=== PATIENT | female | born 1950 | race Caucasian/White ===

== ENCOUNTER 2017-11-22 02:30 | Inpatient (IN) | payer OTHER ==
[~2017-11-22] VITALS: Ht 160 cm; Wt 97.5 kg
[~2017-11-22 02:30] MED LIST: ZESTORETIC 20-1 EAC1 PO
--- NOTE | 2017-11-22 13:40 | Admission Core Measures ---
Acute Coronary Syndrome (CM) ACS Core Measures Acute Coronary Syndrome Diagnosis No Congestive Heart Failure (NEW) CHF Core Measures Congestive Heart Failure Diagnosis No Cerebrovascular Accident (NEW) CVA Core Measures CVA/TIA Diagnosis No Venous Thromboembolism VTE Core Jose L (View Protocol) VTE Risk Factors Surgery No Mechanical VTE Prophylaxis d/t N/A MechProphylax Ordered No VTE Pharm Prophylaxis d/t NA PharmProphylax ordered Problem List As ranked by this Provider includes Assessment & Plan 1. Unilateral primary osteoarthritis, right knee HOME MEDS Home Med List Lisinopril/Hydrochlorothiazide (Zestoretic 20-25 MG Tablet) 20 MG-25 MG TABLET 1 TAB PO DAILY BP (Reported)
--- NOTE | 2017-11-22 13:41 | Surg Short-stay <48hrs Dis Sum ---
Visit Information Visit Dates Admission Date: 11/22/17 Discharge Date: 11/25/17 Surgical Short Stay DC Summary Admission Diagnosis: Primary osteoarthritis, right knee Final Diagnosis: Primary OA, right knee s/p R TKR Procedure(s): Right total knee replacement Summary/Significant Findings: Patient was admitted to the hospital for an elective total joint replacement. Procedure was tolerated well and patient was transferred to a general surgical floor. Diet was advanced and tolerated. Physical therapy performed evaluation and treatment. At time of hospital discharge, vital signs were stable, neurovascular status was intact, and pain was controlled with the use of oral pain medications. Condition at Discharge: Stable Discharge Disposition: home health services Discharge instructions provided to patient/family: Yes Post discharge follow-up plan: Follow up with Dr. Villalobos in 6 weeks from date of surgery. Please call his office to schedule/confirm this appointment.
[2017-11-22] MEDS ORDERED: OMEPRAZOLE20 M2 PO (13:43)
[2017-11-22] MEDS ORDERED: COLACE100 M1 PO (13:43)
[2017-11-22] MEDS ORDERED: ASPIRIN325 M2 PO (13:43)
[2017-11-22] MEDS ORDERED: DILAUDID2 M1 PO (13:43)
[2017-11-22] MEDS ORDERED: MIRALAX17 G1 PO (13:43)
--- NOTE | 2017-11-22 13:45 | Patient Discharge Instructions ---
Discharge Instructions General Discharge Information You were seen/treated for: Primary osteoarthritis, right knee You had these procedures: Right total knee replacement Watch for these problems: Increasing pain despite the use of pain medication Increasing redness, warmth or swelling Drainage of any type from incision Inability to bear weight on operative leg Persistent nausea and vomiting Fever greater than 101.5 degrees Do not soak the wound: Yes No bath, but you may shower: Yes Other wound care: Please keep wound clean and dry. No ointments or lotions of any type on or near incision. Your dressing will be changed by your nurse on the second day after your surgery. Daily dry dressing changes are recommended each day thereafter. Do not soak your wound- no tub baths/swimming. You may shower 48hr after surgery. Special Instructions: Aspirin: You are taking this medication to help prevent blood clot formation. Please take with food to protect your stomach lining. Please take as directed. Constipation: Pain medication can cause constipation. It is recommended that you take Colace and Miralax each day. Discontinue this medication if you develop loose stool or diarrhea. If you wish to continue this medication, it is available over the counter. If you are unable to move your bowels or unable to pass gas and are developing bloating, nausea, or vomiting as a result, please contact your doctor. Diet Continue normal diet: Yes Activity Full Activity/No Limits: No Activity Limited to: Walking with Assistance Other activity limits: Use rolling walker as needed Acute Coronary Syndrome Inclusion Criteria At DC or during hospital stay patient has or had the following: ACS DIAGNOSIS No Discharge Core Measures Meds if any: Prescribed or Continued at Discharge Meds if any: NOT Prescribed or Continued at Discharge Congestive Heart Failure Inclusion Criteria At DC or during hospital stay patient has or had the following: CHF DIAGNOSIS No Discharge Core Measures Meds if any: Prescribed or Continued at Discharge Meds if any: NOT Prescribed or Continued at Discharge Cerebrovascular accident Inclusion Criteria At DC or during hospital stay patient has or had the following: CVA/TIA Diagnosis No Discharge Core Measures Meds if any: Prescribed or Continued at Discharge Meds if any: NOT Prescribed or Continued at Discharge Venous thromboembolism Inclusion Criteria VTE Diagnosis No VTE Type NONE VTE Confirmed by (Test) NONE Discharge Core Measures - Per Current guidelines, there needs to be overlap - treatment for the first 5 days of Warfarin therapy. - If discharged on Warfarin prior to 5 days of - overlap therapy, the patient will need to be - assessed for post discharge needs including - *Post discharge parental anticoagulation - *Warfarin and/or parental anticoagulation education - *Follow up date to check INR post discharge At least 5 days overlap therapy as Inpatient No Meds if any: Prescribed or Continued at Discharge Note: Overlap Therapy is Warfarin and Anticoagulant Meds if any: NOT Prescribed or Continued at Discharge
--- NOTE | 2017-11-22 15:09 | Operative Report ---
Operative/Inv Procedure Report Surgery Date: 11/22/17 Name of Procedure: Right total knee replacement Pre-Operative Diagnosis: Primary right knee DJD Post-Operative Diagnosis: Same Estimated Blood Loss: 50ml to 100ml Surgeon/Cctv Technician: Griselda WAHL,Robert Pal Anesthesia: block Operative/Procedure Note Note: Description of Procedure: The patient was taken to the operating room and positively identified. After induction of spinal anesthesia and administration of appropriate pre-operative antibiotics, the patient was positioned supine on the operating room table and all bony prominences were well padded. A well-padded pneumatic tourniquet was placed on the right upper thigh. After performing a surgical timeout, the right lower extremity was prepped and draped in the usual sterile fashion. After exsanguination with Esmarch the tourniquet was inflated to 250mm of mercury. A standard medial parapatellar approach was made to the knee. This was carried down through skin and subcutaneous tissue to the level of the fascia. Meticulous hemostasis was maintained with Bovie electrocautery. The extensor mechanism and patellar retinaculum were opened sharply and the patella was everted. The infrapatellar fat was resected in order to improve exposure. Osteophytes were trimmed from the patella and femoral condyles and the patella was re-everted and tucked laterally. A medial release was performed and the cruciate ligaments were resected. The tibia was then subluxed anteriorly. Utilizing the appropriate extra-medullary guide, the proximal tibia was trimmed perpendicular to the long axis of the tibial shaft. Attention was then turned to the femur. After opening the medullary canal, the distal femoral cut was made in 6 degrees of valgus utilizing the appropriate intra-medullary guide. The extension gap was checked and found to be appropriate. The femur was then sized and the remainder of the femoral cuts were made with a size #4 4-in-1 femoral cutting guide. The flexion gap was checked and found to be symmetric and appropriate. The knee was then trialed with a size #4 femoral component, a size #4 tibial component and a size 11 mm polyethylene insert. The patella was trimmed to accept an A 32 patella. This yielded excellent range of motion, stability and patellar tracking. All trial components were removed and the knee was copiously irrigated with sterile saline. All components were cemented into place with Renu Simplex cement. All the components were of the Renu Triathlon knee system of the above stated sizes. The knee was again irrigated after cementation. The extensor mechanism and patellar retinaculum were repaired using interrupted #1 vicryl suture. The skin was re-approximated with 2-0 vicryl and closed with yunior. A sterile dressing was applied, the tourniquet was deflated, the patient was awakened and taken to the recovery room in satisfactory condition.
--- NOTE | 2017-11-22 17:28 | PN- Orthopedic ---
Subjective Subjective: POST-OP NOTE No complaints. Numbness already wearing off. Tolerating clears. No nausea. Still in PACU - not yet out of bed. No dizziness. No shortness of breath. No chest pains. Hasn't voided yet. Objective Vital Signs and I&Os Intake & Output 11/22 1600 11/22 0800 11/22 0000 11/21 1600 11/21 0800 11/21 0000 Intake Total Output Total Balance Patient 203 lb Weight pacu flowsheet reviewed, vss, due to void later tonight Physical Exam: General - alert & oriented x 3. comfortable. no acute distress. lungs - clear bilaterally. no w/r/r. Cardiac - s1s2. reg. Abdomen - soft. nontender. Extremities - warm bilaterally. right knee dressing c/d/i. on q device in place. ice over knee. calves soft and nontender b/l. nvi. Current Medications: Current Medications Sig/Tam Start time Last Medication Dose Route Stop Time Status Admin Acetaminophen 0 .STK-MED ONE 11/22 1317 DC PO Cefazolin Sodium 2,000 MG ONCE 11/22 0000 NR IV 11/22 2359 Midazolam HCl 0 .STK-MED ONE 11/22 1316 DC .ROUTE Oxycodone HCl 0 .STK-MED ONE 11/22 1318 DC PO Ropivacaine 500 ML ONCE ONE 11/22 1345 AC ON-Q Ball 1 BAG INJ 11/24 0724 Assessment/Plan Assessment/Plan This 67 year old female with hx htn, is POD#0 s/p right total knee replacement for primary right knee DJD advance diet as tolerated pain control as ordered will order iv tylenol around the clock per patient's request PT eval in am f/u am labs due to void this evening cher-operative ancef x 2 doses asa bid - dvt ppx dressing change and on q removal POD#2 d/c planning in 2-3 days. her goal is for home will d/w Core Measures Venous Thromboembolism VTE Risk Factors Surgery No Mechanical VTE Prophylaxis d/t N/A MechProphylax Ordered No VTE Pharm Prophylaxis d/t NA PharmProphylax ordered
[2017-11-22 18:30] VITALS: BP 132/88
[2017-11-22 21:58] VITALS: BP 124/88
[2017-11-23 02:22] VITALS: BP 138/86
[2017-11-23 05:54] VITALS: BP 122/72
--- NOTE | 2017-11-23 07:24 | PN- Orthopedic ---
Subjective Subjective: Patient states she feels well. She reports pain is well controlled. She states she took dilaudid in preperation of ambulating with PT this morning. She reports baseline pins and needles sensation in her toes. She offers no other complaints. 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 Objective Vital Signs and I&Os Vital Signs Date Time Temp Pulse Resp B/P B/P Pulse O2 O2 Flow FiO2 Mean Ox Delivery Rate 11/23 0554 98.4 78 20 122/72 93 Room Air 11/23 0222 98.3 77 20 138/86 93 Room Air 11/22 2158 98.1 68 20 124/88 90 Room Air 11/22 1830 98.4 86 22 132/88 94 Room Air Intake & Output 11/23 0800 11/23 0000 11/22 1600 11/22 0800 11/22 0000 11/21 1600 Intake Total 1000 Output Total 400 1000 Balance 600 -1000 Intake, IV 800 Intake, Oral 200 Output, Urine 400 1000 Patient 215 lb 203 lb Weight Weight Reported by Patient Measurement Method Physical Exam: Gen - resting comfortably awake an alert in NAD Cardiac - S1S2 noted, RRR Lungs - CTAB Abd - soft, nontender nondistended Ext - RLE dressing with abran wrap c/d/i, moves all extremities, motor an sensory intact. Alps in place, no edema or calf tenderness B/L Current Medications: Current Medications Sig/Tam Start time Last Medication Dose Route Stop Time Status Admin Acetaminophen 1,000 MG Q6H 11/23 0330 AC 11/23 N/A 1 UNIT IV 11/23 1544 0314 Acetaminophen 1,000 MG Q6H 11/22 1830 DC 11/22 N/A 1 UNIT IV 11/23 1244 2130 Acetaminophen 0 .STK-MED ONE 11/22 1317 DC PO Aspirin 325 MG BID 11/22 2200 AC 11/22 PO 2131 Cefazolin Sodium 2 GM Q8H 11/23 0030 AC 11/23 N/A 1 UNIT IV 11/23 0859 0027 Cefazolin Sodium 2 GM IQ8 11/22 1600 DC N/A 1 UNIT IV 11/23 0029 Cefazolin Sodium 2,000 MG ONCE 11/22 0000 DC IV 11/22 2359 Dextrose/Sodium 1,000 ML .[id number] 11/22 1830 AC 11/23 Chloride IV 0032 Docusate Sodium 100 MG BID 11/22 2200 AC 11/22 PO 2131 Fentanyl Citrate 100 MCG .STK-MED ONE 11/22 1318 DC IM 11/22 1319 Hydrochlorothiazide 25 MG DAILY 11/23 1000 AC PO Hydromorphone HCl 2 MG Q4P PRN 11/22 1830 AC 11/23 PO 0613 Hydromorphone HCl 4 MG Q4P PRN 11/22 1830 AC PO Hydromorphone HCl 2 MG .STK-MED ONE 11/22 1535 DC IM 11/22 1536 Lisinopril 20 MG DAILY 11/23 1000 AC PO Meperidine HCl 50 MG .STK-MED ONE 11/22 1535 DC IM 11/22 1536 Midazolam HCl 2 MG .STK-MED ONE 11/22 1318 DC IM 11/22 1319 Midazolam HCl 0 .STK-MED ONE 11/22 1316 DC .ROUTE Morphine Sulfate 2 MG Q2P PRN 11/22 1830 AC IV Morphine Sulfate 10 MG .STK-MED ONE 11/22 1318 DC IV 11/22 1319 Omeprazole 20 MG DAILY AC 11/23 0700 AC 11/23 PO 0614 Ondansetron HCl 4 MG Q6P PRN 11/22 1830 AC IV Oxycodone HCl 0 .STK-MED ONE 11/22 1318 DC PO Polyethylene Glycol 17 GM DAILY 11/23 1000 AC PO Promethazine HCl 12.5 MG Q6P PRN 11/22 1830 AC IV 11/29 1329 Ropivacaine 500 ML ONCE ONE 11/22 1345 DC ON-Q Ball 1 BAG INJ 11/24 0724 Tranexamic Acid 2,000 MG .STK-MED ONE 11/22 1318 DC IV 11/22 1319 Results Last 48 Hours of Labs: Laboratory Tests 11/23 0655 Chemistry Sodium Pending Potassium Pending Chloride Pending Carbon Dioxide Pending Anion Gap Pending BUN Pending Creatinine Pending BUN/Creatinine Ratio Pending Hematology CBC w Diff Pending WBC Pending RBC Pending Hgb Pending Hct Pending MCV Pending MCH Pending RDW Pending Plt Count Pending MPV Pending PUBS MCHC Pending Assessment/Plan Assessment/Plan This is a 67 year old female with PMHx of htn and right nephrectomy due to enlarged cyst who is POD#1 s/p right total knee replacement for primary right knee DJD who is recovering well, awaiting PT eval OOB w/ PT, WBAT Cont reg diet D/c IVF Cont pain regimen - no toradol Home meds on board GI ppx on board DVT ppx - alps, asa bid Bowel regimen on board F/u am labs Dressing change and on q removal POD#2 D/c planning in 1-2 days with hhs Will d/w Core Measures Venous Thromboembolism VTE Risk Factors Surgery No Mechanical VTE Prophylaxis d/t N/A MechProphylax Ordered No VTE Pharm Prophylaxis d/t NA PharmProphylax ordered
[2017-11-23 08:21] LABS: ABSOLUTE BASOPHIL COUNT 0 /CUMM (0.0-0.2); ABSOLUTE EOSINOPHIL COUNT 0 /CUMM (0.0-0.7); ABSOLUTE GRANULOCYTE CT 10.6 /CUMM (1.4-6.5); ABSOLUTE LYMPH COUNT 0.9 /CUMM (1.2-3.4); ABSOLUTE MONOCYTE COUNT 0.8 /CUMM (0.10-0.60); BASOPHIL % 0.1 % (0.0-2.0); EOSINOPHIL % 0 % (0-5); HEMATOCRIT 39.3 % (37-47); MEAN CORPUSCULAR HGB 31.2 PG (27.0-31.0); MEAN CORPUSCULAR HGB CONC 33.5 G/DL (33.0-37.0); MEAN CORPUSCULAR VOLUME 93.3 FL (81.0-99.0); MEAN PLATELET VOLUME 8.7 FL (7.4-10.4); PLATELET COUNT 202 /CUMM (130-400); RBC DISTRIBUTION WIDTH 13.1 % (11.5-14.5); RED BLOOD CELL CT 4.21 /CUMM (4.20-5.40); WHITE BLOOD CELL COUNT 12.3 /CUMM (4.8-10.8)
[2017-11-23 09:55] LABS: GRANULOCYTE % 86.1 % (42.2-75.2)
[2017-11-23 12:00] VITALS: BP 88/42
[2017-11-23 16:22] VITALS: BP 100/68
[2017-11-23 22:00] VITALS: BP 119/73
--- NOTE | 2017-11-24 07:10 | PN- Orthopedic ---
Subjective Subjective: POD #2 s/p right TKR. Resting uncomfortably in bed. Complains of pain to left knee and insomnia. No N/V, F/C, CP/SOB. Tolerating a regular diet. Voiding spontaneously. Onq pump removed this morning by RN. Working with PT, yet to clear stairs. Objective Vital Signs and I&Os Vital Signs Date Time Temp Pulse Resp B/P B/P Pulse O2 O2 Flow FiO2 Mean Ox Delivery Rate 11/24 0711 98.0 73 20 104/69 95 Room Air 11/23 2200 98.4 84 20 119/73 92 Room Air 11/23 1622 97.6 86 19 100/68 92 Room Air 11/23 1200 97.5 84 20 88/42 93 Room Air Room Air 11/23 1126 Room Air 11/23 0955 80 90/54 Intake & Output 11/24 0800 11/24 0000 11/23 1600 11/23 0800 11/23 0000 11/22 1600 Intake Total 962 083 4900 Output Total 1550 519 305 6406 Balance -730 370 600 -1000 Intake, IV 100 800 Intake, Oral 720 720 200 Number 0 Bowel Movements Output, Urine 1550 [phone] Patient 215 lb Weight Weight Reported by Patient Measurement Method Physical Exam: Gen: AAOx3 in NAD Cor: S1+S2+ Lungs: CTA sadia Abd: soft, NT, ND, +BS x4 Ext: dressing changed to right knee. Incision C/D/I with yunior. Surrounding blanchable erythema noted. No calf tenderness or edema to sadia lower extremities. Able to dorsiflex and plantar flex. Palpable DP/PT pulses sadia. Sensation grossly intact. Current Medications: Current Medications Sig/Tam Start time Last Medication Dose Route Stop Time Status Admin Acetaminophen 1,000 MG Q6H 11/23 0330 DC 11/23 N/A 1 UNIT IV 11/23 1544 1640 Aspirin 325 MG BID 11/22 2199 AC 11/23 PO 2056 Cefazolin Sodium 2 GM Q8H 11/23 0030 DC 11/23 N/A 1 UNIT IV 11/23 0859 0728 Docusate Sodium 100 MG BID 11/22 2199 AC 11/23 PO 2056 Hydrochlorothiazide 25 MG DAILY 11/23 1000 AC PO Hydromorphone HCl 2 MG Q4P PRN 11/22 1830 AC 11/23 PO 0613 Hydromorphone HCl 4 MG Q4P PRN 11/22 1829 AC 11/24 PO 0642 Lisinopril 20 MG DAILY 11/23 1000 AC PO Melatonin 5 MG AT BEDTIME PRN 11/24 0045 AC PO Morphine Sulfate 2 MG Q2P PRN 11/22 1829 AC 11/24 IV 0359 Omeprazole 20 MG DAILY AC 11/23 0700 AC 11/23 PO 0614 Ondansetron HCl 4 MG Q6P PRN 11/22 1829 AC IV Polyethylene Glycol 17 GM DAILY 11/23 1000 AC 11/23 PO 0954 Promethazine HCl 12.5 MG Q6P PRN 11/22 1829 AC IV 11/29 1329 Zolpidem Tartrate 10 MG AT BEDTIME PRN 11/24 0045 AC PO Results Last 48 Hours of Labs: Laboratory Tests 11/23 06 Chemistry Sodium (137 - 145 mmol/L) 141 Potassium (3.5 - 5.1 mmol/L) 5.1 Chloride (98 - 107 mmol/L) 107 Carbon Dioxide (22 - 30 mmol/L) 21 L Anion Gap (5 - 16) 13 BUN (7 - 17 mg/dL) 41 H Creatinine (0.5 - 1.0 mg/dL) 1.2 H Estimated GFR (>60 ml/min) 45 L BUN/Creatinine Ratio (7 - 25 %) 34.2 H Hematology CBC w Diff NO MAN DIFF REQ WBC (4.8 - 10.8 /CUMM) 12.3 H RBC (4.20 - 5.40 /CUMM) 4.21 Hgb (12.0 - 16.0 G/DL) 13.2 Hct (37 - 47 %) 39.3 MCV (81.0 - 99.0 FL) 93.3 MCH (27.0 - 31.0 PG) 31.2 H RDW (11.5 - 14.5 %) 13.1 Plt Count (130 - 400 /CUMM) 202 MPV (7.4 - 10.4 FL) 8.7 Gran % (42.2 - 75.2 %) 86.1 H Lymphocytes % (20.5 - 51.1 %) 7.0 L Monocytes % (1.7 - 9.3 %) 6.8 Eosinophils % (0 - 5 %) 0 Basophils % (0.0 - 2.0 %) 0.1 Absolute Granulocytes (1.4 - 6.5 /CUMM) 10.6 H Absolute Lymphocytes (1.2 - 3.4 /CUMM) 0.9 L Absolute Monocytes (0.10 - 0.60 /CUMM) 0.8 H Absolute Eosinophils (0.0 - 0.7 /CUMM) 0 Absolute Basophils (0.0 - 0.2 /CUMM) 0 PUBS MCHC (33.0 - 37.0 G/DL) 33.5 Assessment/Plan Assessment/Plan A: POD #2 s/p right TKR; AVSS Plan: Continue PT- needs to clear stairs today. Has one step to get inside house. Will increase dilaudid PO as pain not controlled. Continue bowel regimen. Continue ASA BID. ? d/c today. Core Measures Venous Thromboembolism VTE Risk Factors Surgery No Mechanical VTE Prophylaxis d/t N/A MechProphylax Ordered No VTE Pharm Prophylaxis d/t NA PharmProphylax ordered
[2017-11-24 07:11] VITALS: BP 104/69
[2017-11-24 08:31] LABS: ABSOLUTE BASOPHIL COUNT 0.1 /CUMM (0.0-0.2); ABSOLUTE EOSINOPHIL COUNT 0.1 /CUMM (0.0-0.7); ABSOLUTE GRANULOCYTE CT 9.2 /CUMM (1.4-6.5); ABSOLUTE MONOCYTE COUNT 0.8 /CUMM (0.10-0.60); EOSINOPHIL % 0.9 % (0-5); HEMATOCRIT 39.9 % (37-47); MEAN CORPUSCULAR HGB 30.8 PG (27.0-31.0); MEAN CORPUSCULAR VOLUME 93.3 FL (81.0-99.0); MEAN PLATELET VOLUME 8.2 FL (7.4-10.4); PLATELET COUNT 196 /CUMM (130-400); RED BLOOD CELL CT 4.28 /CUMM (4.20-5.40); WHITE BLOOD CELL COUNT 11.2 /CUMM (4.8-10.8)
[2017-11-24 13:28] VITALS: BP 130/74
[2017-11-24 21:39] VITALS: BP 142/88
[2017-11-25 06:58] VITALS: BP 134/72
--- NOTE | 2017-11-25 12:04 | PN- Orthopedic ---
Subjective Subjective: feeling well, ambulated w pt. no cp/sob/n/v. awaiting stair eval Objective Vital Signs and I&Os Vital Signs Date Time Temp Pulse Resp B/P B/P Pulse O2 O2 Flow FiO2 Mean Ox Delivery Rate 11/25 0953 92 124/62 11/25 0658 97.8 109 20 134/72 92 11/24 2139 98.1 94 19 142/88 93 Room Air 11/24 1328 98.7 95 20 130/74 92 Room Air Intake & Output 11/25 1600 11/25 0800 11/25 0000 11/24 1600 11/24 0800 11/24 0000 Intake Total 300 600 700 480 820 Output Total 386 508 0722 Balance 300 600 400 -320 -730 Intake, IV 100 Intake, Oral 300 600 700 480 720 Number 0 Bowel Movements Output, Urine [phone] Physical Exam: gen- nad card- s1s2 rrr pulm- ctab abd- soft nt ext- palp dp, calves soft nt, incision w cdi dressing, gross sensation intact, + plantar/dorsi flexion Current Medications: Current Medications Sig/Tam Start time Last Medication Dose Route Stop Time Status Admin Aspirin 325 MG BID 11/22 2199 AC 11/25 PO 0953 Docusate Sodium 100 MG BID 11/22 2199 AC 11/25 PO 0953 Hydrochlorothiazide 25 MG DAILY 11/23 1000 AC 11/25 PO 0953 Hydromorphone HCl 4 MG Q4P PRN 11/24 0745 AC 11/25 PO 0557 Lisinopril 20 MG DAILY 11/23 1000 AC 11/25 PO 0953 Melatonin 5 MG AT BEDTIME PRN 11/24 0045 AC PO Morphine Sulfate 15 MG BID 11/24 1000 AC 11/25 PO 0953 Omeprazole 20 MG DAILY AC 11/23 0700 AC 11/23 PO 0614 Ondansetron HCl 4 MG Q6P PRN 11/22 1830 AC IV Polyethylene Glycol 17 GM DAILY 11/23 1000 AC 11/25 PO 0953 Promethazine HCl 12.5 MG Q6P PRN 11/22 1830 AC IV 11/29 1329 Zolpidem Tartrate 10 MG AT BEDTIME PRN 11/24 0045 AC PO Assessment/Plan Assessment/Plan A- POD3 sp r tkr, stable P- awating stairs eval by pt. prn po pain meds asa 325 bid, alps pt, wbat dc planning Core Measures Venous Thromboembolism VTE Risk Factors Surgery No Mechanical VTE Prophylaxis d/t N/A MechProphylax Ordered No VTE Pharm Prophylaxis d/t NA PharmProphylax ordered
[2017-11-25] MEDS ORDERED: MIRALAX17 G1 PO (12:05)
[2017-11-25] MEDS ORDERED: COLACE100 M1 PO (12:05)
[2017-11-25] MEDS ORDERED: DILAUDID2 M1 PO (12:05)
[2017-11-25] MEDS ORDERED: ASPIRIN325 M2 PO (12:05)
[2017-11-25] MEDS ORDERED: OMEPRAZOLE20 M2 PO (12:05)
[2017-11-25 13:15] VITALS: BP 110/70
== END 2017-11-25 17:45 | disposition home health service (06) | DRG 470 ==
LOC: SDA 02:30 → ENRESERV 17:45 → ENTRNSPT 17:55 → EDTRNSPTSTS 18:01 → 2NB 18:25 → CMPTRNSPT 18:41 → ENPENDDIS 11-25 14:53 → 2NB 11-25 17:45
PROVIDERS: Physician Assistant Surgical
PROC: 0SRC069 Replacement of Right Knee Joint with Oxidized Zirconium on Polyethylene Synthetic Substitute, Cemented, Open Approach (ICD-10-PCS; principal; 2017-11-22)
PROC: 3E0T3BZ Introduction of Anesthetic Agent into Peripheral Nerves and Plexi, Percutaneous Approach (ICD-10-PCS; 2017-11-22)
DX: M17.11 Unilateral primary osteoarthritis, right knee (principal); E66.9 Obesity, unspecified; I10 Essential (primary) hypertension; Z85.528 Personal history of other malignant neoplasm of kidney; Z68.38 Body mass index [BMI] 38.0-38.9, adult
CPT/HCPCS: 2NBP; 36415; 82436; 97110-GO; 97116-GO; 97161-GP; 97530-GO; C1713; J0131; J0690; J2550; J2795; J7042